=== PATIENT | male | born 1945 | race Caucasian/White ===

== ENCOUNTER 2019-08-05 10:51 | Emergency (ER) | payer OTHER | END 2019-08-05 12:08 | disposition home or self-care (01) | LOC: EDH 10:51 | DX: S42.341A Displaced spiral fracture of shaft of humerus, right arm, initial encounter for closed fracture (principal); I10 Essential (primary) hypertension; Z87.891 Personal history of nicotine dependence; W19.XXXA Unspecified fall, initial encounter; Y93.02 Activity, running; Y92.488 Other paved roadways as the place of occurrence of the external cause; Y99.8 Other external cause status | CPT/HCPCS: 73060; 73070 ==

== ENCOUNTER 2019-09-16 22:03 | Emergency (ER) | payer OTHER ==
[2019-09-16] MEDS ORDERED: TETRACAINE HCL 0.5% 4 ML OPHTH SOLN ONE (22:19)
[2019-09-16] MEDS ORDERED: NA BORATE/BORIC AC/H2O/NACL 120 ML OPHTH IRRIG SOLN ONE (22:19)
[2019-09-16] MEDS ORDERED: FLUORESCEIN SODIUM 1 STRIP STRIP ONE (22:20)
[2019-09-16] MEDS ORDERED: ERYTHROMYCIN BASE 0.5% OPHTH OINT 1 GM TUBE ONE (22:48)
== END 2019-09-16 23:50 | disposition home or self-care (01) ==
LOC: EDH 22:03
DX: S05.02XA Injury of conjunctiva and corneal abrasion without foreign body, left eye, initial encounter (principal); S05.01XA Injury of conjunctiva and corneal abrasion without foreign body, right eye, initial encounter; I10 Essential (primary) hypertension; Z87.891 Personal history of nicotine dependence; X58.XXXA Exposure to other specified factors, initial encounter; Y93.89 Activity, other specified; Y92.89 Other specified places as the place of occurrence of the external cause; Y99.8 Other external cause status

== ENCOUNTER 2019-11-16 20:58 | Emergency (ER) | payer OTHER ==
[2019-11-16] MEDS ORDERED: ERYTHROMYCIN BASE 0.5% OPHTH OINT 1 GM TUBE ONE (21:30)
[2019-11-16] MEDS ORDERED: ACETAMINOPHEN EXTRA STRENGTH 500 MG TABLET ONE (21:30)
== END 2019-11-16 21:39 | disposition home or self-care (01) ==
LOC: EDH 20:58
DX: H10.31 Unspecified acute conjunctivitis, right eye (principal); I10 Essential (primary) hypertension